=== PATIENT | male | born 1940 | race Caucasian/White ===

== ENCOUNTER → 2018-09-02 17:21 | Emergency (ER) | payer MEDICARE ==
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
[2018-09-02 19:30] VITALS: BP 127/68
== END | disposition home or self-care (01) ==
LOC: ED 17:21
DX: S69.91XA Unspecified injury of right wrist, hand and finger(s), initial encounter (principal); R60.9 Edema, unspecified; Z85.46 Personal history of malignant neoplasm of prostate; W22.8XXA Striking against or struck by other objects, initial encounter; Y92.9 Unspecified place or not applicable
CPT/HCPCS: 73140; 99282